=== PATIENT | female | born 1945 | race Caucasian/White ===

== ENCOUNTER 2022-10-16 11:11 | Emergency (ER) | payer BC, MEDICARE ==
[2022-10-16 12:32] LABS: CORONAVIRUS COVID-19 NAA NEGATIVE (NEGATIVE); INFLUENZA A NAA NEGATIVE (NEGATIVE); INFLUENZA B NAA NEGATIVE (NEGATIVE); RESPIRATORY SYNCYTIAL VIR NAA NEGATIVE (NEGATIVE)
[2022-10-16 12:53] VITALS: BP 98/46; PULSE 72
== END 2022-10-16 12:41 | disposition home or self-care (01) ==
LOC: MW.ED 11:11
DX: J06.9 Acute upper respiratory infection, unspecified (principal); B34.9 Viral infection, unspecified; Z20.822 Contact with and (suspected) exposure to COVID-19
CPT/HCPCS: 0241U; 99283